=== PATIENT | female | born 1985 | race Caucasian/White ===

== ENCOUNTER 2017-02-07 12:02 | Emergency (ER) | payer OTHER ==
[~2017-02-07 12:02] MED LIST: DELTASONE20 MG; FLEXERIL10 MG; KETOPROFEN PO; PRENATAL MULITV1 TAB; VICODIN PO
== END 2017-02-07 13:30 | disposition home or self-care (01) ==
LOC: SED 12:02
DX: S05.01XA Injury of conjunctiva and corneal abrasion without foreign body, right eye, initial encounter (principal); F17.210 Nicotine dependence, cigarettes, uncomplicated; Z23 Encounter for immunization; X58.XXXA Exposure to other specified factors, initial encounter
CPT/HCPCS: 90471; 90715; 99283